=== PATIENT | male | born 2000 | race Caucasian/White ===

== ENCOUNTER 2023-05-28 09:53 | Emergency (ER) | payer MEDICAID ==
[~2023-05-28] VITALS: Ht 180.3 cm; Wt 72.7 kg
[2023-05-28 10:59] LABS: BASOPHILS % (AUTO) 0.4 % (0.0-2.0); EOSINOPHILS % (AUTO) 0 % (1.0-6.0); HEMATOCRIT 41.4 % (41-53); LYMPHOCYTES % (AUTO) 7.9 % (22.0-44.0); MEAN CORPUSCULAR HEMOGLOBIN 30.4 pg (26.0-34.0); MEAN CORPUSCULAR HGB CONC 33.9 G/dL (31.0-37.0); MEAN CORPUSCULAR VOLUME 90 fL (80-100); MONOCYTES # (AUTO) 0.7 K/uL (0.1-1.0); MONOCYTES % (AUTO) 5.9 % (2.0-9.0); NEUTROPHILS # (AUTO) 10.9 K/uL (1.8-7.7); PLATELET COUNT (AUTO) 300 K/uL (150-450); RED BLOOD CELL COUNT(AUTO) 4.62 MIL/uL (4.50-5.90); RED CELL DISTRIBUTION WIDTH 13.3 % (11.5-14.5); WHITE BLOOD COUNT (AUTO) 12.7 K/uL (4.5-11.0)
[2023-05-28 11:01] LABS: NEUTROPHILS % (AUTO) 85.8 % (40.0-70.0)
[2023-05-28 11:09] VITALS: TEMP 99.2
[2023-05-28 11:09] LABS: ANION GAP 12 mmol/L (8-16); CARBON DIOXIDE 24 mmol/L (22-29); CHLORIDE 103 mmol/L (98-107); CREATININE 1.04 mg/dL (0.60-1.30); GLOMERULAR FILTR. RATE CALC > 60 mL/min (>60); GLUCOSE,RANDOM 79 mg/dL (70-110); POTASSIUM 3.9 mmol/L (3.5-5.1); SODIUM SERUM 139 mmol/L (136-145); UREA NITROGEN, BLOOD 14 mg/dL (7-18)
[2023-05-28 11:15] LABS: ALANINE AMINOTRANSFERASE 27 U/L (12-78); ALBUMIN 4.1 g/dL (3.4-5.0); ALKALINE PHOSPHATASE 123 U/L (46-116); ASPARTATE AMINOTRANSFERASE 35 U/L (15-37); BILIRUBIN,TOTAL 0.3 mg/dL (0.1-1.0); TOTAL PROTEIN, SERUM 8.6 g/dL (6.4-8.2)
[2023-05-28 11:18] LABS: APPEARANCE,URINE TURBID (CLEAR); BILIRUBIN,URINE NEGATIVE (NEGATIVE); GLUCOSE, URINE (UA) NEGATIVE (NEGATIVE); KETONES,URINE TRACE mg/dL (NEGATIVE); LEUKOCYTE ESTERASE ,URINE TRACE (NEGATIVE); NITRATE,URINE NEGATIVE (NEGATIVE); OCCULT BLOOD,URINE LARGE (NEGATIVE); PH,URINE 5.5 (5.0-8.0); PROTEIN,URINE 100-200,SEE CONFIRM mg/dL (NEGATIVE); SPECIFIC GRAVITIY, URINE 1.018 (1.003-1.030); UROBILINOGEN,URINE <=1.0 mg/dL (<=1.0)
[2023-05-28 11:26] LABS: COLOR,URINE BROWN (YELLOW)
[2023-05-28 11:33] LABS: SULFOSALICYLIC ACID,URINE 2+ (Negative)
[2023-05-28 11:34] LABS: BACTERIA,URINE Moderate /HPF (None Seen); RBC,URINE >100 /HPF (0-2); WBC,URINE 0-2 /HPF (0-5)
[2023-05-28] MEDS ORDERED: IOHEXOL 350 MG/ML 100 ML VIAL ONE (12:39)
[2023-05-28] MEDS ORDERED: SODIUM CHLORIDE 0.9% 100 ML ONE (12:39)
[2023-05-28] MEDS: BACITRACIN 0.9 GM PACKET OINTMENT TP ONE (12:49)
[2023-05-28] MEDS: PERTUSS(ACELL),DIPH,TET VAC/PF 0.5 ML SYRINGE IM. ONE (12:49)
[2023-05-28 13:08] LABS: CREATINE KINASE, TOTAL ONLY 709 U/L (39-308)
[2023-05-28] MEDS: SODIUM CHLORIDE 0.9% 1,000 ML IV ONE (14:03)
[2023-05-28 14:30] VITALS: PULSE 89; RESP 20; O2SAT 99
[2023-05-28] MEDS: ACETAMINOPHEN 500 MG TABLET PO ONE (14:45)
[2023-05-28] MEDS: LIDOCAINE 5% TRANSDERMAL PATCH TD ONE (14:46)
[2023-05-28] MEDS: CefTRIAXone 1 GM/DEXTROSE 50 ML IV ONE (15:35)
[2023-05-28 15:55] VITALS: BP 116/56; PULSE 83; RESP 20
[2023-05-28 15:58] LABS: PH,URINE DRUG SCREEN 5.5 (5.0-8.0)
[2023-05-28 16:17] LABS: ALCOHOL, URINE DRUG SCREEN POSITIVE (NEGATIVE); AMPHET/METH SCREEN,URINE NEGATIVE (NEGATIVE); BARBITURATE SCREEN, URINE NEGATIVE (NEGATIVE); BENZODIAZEPINES SCREEN,URINE NEGATIVE (NEGATIVE); CANNABINOID SCREEN,URINE NEGATIVE (NEGATIVE); COCAINE SCREEN,URINE NEGATIVE (NEGATIVE); METHADONE SCREEN, URINE NEGATIVE (NEGATIVE); OPIATE SCREEN,URINE NEGATIVE (NEGATIVE); PHENCYCLIDINE SCREEN,URINE NEGATIVE (NEGATIVE)
== END 2023-05-28 16:08 | disposition short-term general hospital (02) ==
LOC: EDBD 09:54 → EMS 09:54
DX: S22.32XA Fracture of one rib, left side, initial encounter for closed fracture (principal); S00.81XA Abrasion of other part of head, initial encounter; R31.9 Hematuria, unspecified; N12 Tubulo-interstitial nephritis, not specified as acute or chronic; F17.210 Nicotine dependence, cigarettes, uncomplicated; X58.XXXA Exposure to other specified factors, initial encounter; Y93.89 Activity, other specified; Y92.89 Other specified places as the place of occurrence of the external cause; Y99.8 Other external cause status
CPT/HCPCS: 99285; 70450; 96365; 71046; 96361; 80053; 81001; 82550; 85025; 86850; 86900; 86901; 36415; 87086; 87186; 70486; 71260; 72125; 72128; 72131; 72193; 74160; 90715; 90471; 80307; G0238; J0696; Q9967; J7050; G0480; 81002